=== PATIENT | female | born 1995 ===

== ENCOUNTER 2025-01-26 05:12 | Day surgery (SDC) | payer OTHER ==
[2025-01-22 14:09] VITALS: BP 113/79
[~2025-01-26] VITALS: Ht 165.1 cm; Wt 106.1 kg
[~2025-01-26 05:12] MED LIST: AVIANE-28 TABL1 EACH; TUSSIN DM LIQU118 ML; ZITHROMAX200 MG PO
[2025-01-26] MEDS ORDERED: CIPROFLOXACIN HCL 0.175 MG/DR DROPS OP ONE (11:30)
[2025-01-26] MEDS ORDERED: CEFAZOLIN SODIUM 1,000 MG VIAL IV ONE (11:30)
[2025-01-26] MEDS ORDERED: POVIDONE-IODINE 0.75 OZ PACKET TOP ONE (11:30)
[2025-01-26] MEDS ORDERED: EPINEPHRINE HCL/PF 1 MG/ML AMPUL IR ONE (11:30)
[2025-01-26] MEDS ORDERED: CEPHALEXIN500 M1 PO (12:37)
[2025-01-26] MEDS ORDERED: CIPROFLOXACIN2.5 ML OTIC (12:38)
[2025-01-26] MEDS ORDERED: MORPHINE SULFATE 4 MG/ML VIAL IV ONE (13:20)
== END 2025-01-26 14:30 | disposition home or self-care (01) ==
LOC: CIR.AMB 05:12
PROVIDERS: ATTEND Otolaryngology Otology & Neurotology
DX: H80.92 Unspecified otosclerosis, left ear (principal); H90.12 Conductive hearing loss, unilateral, left ear, with unrestricted hearing on the contralateral side